=== PATIENT | male | born 1990 | race American Indian/Alaskan Native ===

== ENCOUNTER 2017-01-10 17:10 | Emergency (ER) | payer SELFPAY ==
[2017-01-10 17:27] VITALS: O2SAT 24
[2017-01-10] MEDS ORDERED: DiphenhydrAMINE 50 mg/ml Inj IVP STA (18:15)
[2017-01-10] MEDS ORDERED: Sodium Chloride 0.9% 1,000 ML IV ONE (18:15)
--- NOTE | 2017-01-10 18:27 | C.PDOC ---
History Of Present Illness Patient is a 26 y/o male who presents to the ED with complaints of a subjective 100.2 fever, cough, and congestion since last night. Patient admits to associated weakness as well. Patient notes vomiting x1 since onset of symptoms but denies diarrhea or abdominal pain. There are no other complaints at this time. Time Seen by Provider: 01/10/17 18:11 Chief Complaint (Nursing): Fever History Per: Patient History/Exam Limitations: no limitations Onset/Duration Of Symptoms: Days (onset of symptoms last night. ) Current Symptoms Are (Timing): Still Present Associated Symptoms: Fever, Sore Throat, Cough, Vomiting. denies: Diarrhea Recent travel outside of the [place]: No Past Medical History Reviewed: Historical Data, Nursing Documentation, Vital Signs Vital Signs: Last Vital Signs Temp 100.9 F H 01/10/17 19:46 Pulse 89 01/10/17 19:46 Resp 18 01/10/17 19:46 BP 116/66 01/10/17 19:46 Pulse Ox 24 L 01/10/17 20:50 - Medical History PMH: Fractures Surgical History: No Surg Hx - [facility] Procedures APPLICATION OF SPLINT (04/20/14) Family History: States: Unknown Family Hx - Social History Hx Tobacco Use: Yes Hx Alcohol Use: No Hx Substance Use: No - Immunization History Hx Tetanus Toxoid Vaccination: Yes Hx Influenza Vaccination: Yes Hx Pneumococcal Vaccination: Yes Review Of Systems Except As Marked, All Systems Reviewed And Found Negative. Constitutional: Positive for: Fever, Weakness Respiratory: Positive for: Cough Gastrointestinal: Positive for: Vomiting Neurological: Positive for: Weakness Physical Exam - Physical Exam Appears: Well, Non-toxic, No Acute Distress Skin: Normal Color, Warm, Dry Head: Atraumatic, Normacephalic Oral Mucosa: Moist Throat: Erythema, Exudate Chest: Symmetrical Cardiovascular: Rhythm Regular, No Murmur Respiratory: Normal Breath Sounds, No Rales, No Rhonchi, No Wheezing Gastrointestinal/Abdominal: Soft, No Tenderness Neurological/Psych: Oriented x3, Normal Speech, Normal Cognition, Other (no focal defecits. ) ED Course And Treatment - Laboratory Results Result Diagrams: 01/10/17 18:26 01/10/17 18:26 O2 Sat by Pulse Oximetry: 24 (room air) Pulse Ox Interpretation: Abnormal Against Medical Advice - AMA Patient Left Against Medical Advice: The patient declines admission to the hospital and wishes to leave the Emergency Department. This action is against my medical advice. This decision was made with informed refusal. The patient was told that admission to the hospital is necessary. Explanation of the reasons why were discussed. The risks of leaving were explained to the patient and include, but are not limited to, worsening of known or currently unknown conditions, permanent disability and from undiagnosed or untreated conditions. The patient has the capacity to make this informed decision and understands my explanation of the current medical problem and risks of leaving. The patient voluntarily accepts these risks and signed an AMA form documenting our conversation. The patient was given the opportunity to ask questions and reconsider. The patient was encouraged to return to the Emergency Department at any time for further care. Medical Decision Making Medical Decision Making: ro strep, pneumonia, sepsis, labs imaging pending Plan: Blood work, CXR, Rapid Strep, Influenza A B, and UA ordered; Tylenol, Benadryl, Reglan, and IV fluids administered. 800: strep positive. antibitoics dosed. pt with persisatn hernandes, photophobia. suggested lp to r/o mengitis and head ct. pt refuses. signs ama. Disposition - Disposition Referrals: [facility] [Outside] [facility] [Outside] [facility] [Outside] Disposition: AGAINST MEDICAL ADVICE Disposition Time: 07:00 Condition: UNKNOWN Additional Instructions: you are leaving without all diagnostic testing. you are able to return to er with any worsening symptoms or concerns. Prescriptions: Cefpodoxime [Vantin] 100 mg PO BID #14 tab Instructions: Strep Throat (ED), Against Medical Advice (ED) Forms: [email or web address] (Yoruba), Work Excuse - Clinical Impression Clinical Impression: Strep pharyngitis, Left against medical advice - Scribe Statement The provider has reviewed the documentation as recorded by the Scribe Shaylee Pink All medical record entries made by the Scribe were at my direction and personally dictated by me. I have reviewed the chart and agree that the record accurately reflects my personal performance of the history, physical exam, medical decision making, and the department course for this patient. I have also personally directed, reviewed, and agree with the discharge instructions and disposition.
[2017-01-10 18:29] LABS: VENOUS BLOOD GAS BASE EXCESS 2.7 mmol/L (0.0-2.0); VENOUS BLOOD GAS PCO2 50 mmHg (40-60); VENOUS BLOOD PH 7.37 (7.32-7.43)
[2017-01-10 18:31] LABS: BASO % 0.3 % (0.0-2.0); EOS # 0.1 K/uL (0.0-0.7); EOS % 0.7 % (0.0-4.0); HEMATOCRIT 40.9 % (35.0-51.0); LYMPH # 0.9 K/uL (1.0-4.3); LYMPH % 7.2 % (20.0-40.0); MEAN CELL VOLUME 86.8 fL (80.0-94.0); MEAN CORPUSCULAR HEMOGLOBIN 28.8 pg (27.0-31.0); MEAN CORPUSCULAR HGB CONC 33.1 g/dL (33.0-37.0); MEAN PLATELET VOLUME 8.7 fL (7.2-11.7); MONO # 0.8 K/uL (0.0-0.8); MONO % 6.8 % (0.0-10.0); PLATELET COUNT 153 K/uL (130-400); RED CELL DISTRIBUTION WIDTH 13.1 % (11.5-14.5); WHITE BLOOD COUNT 12.3 K/uL (4.8-10.8)
[2017-01-10 18:40] LABS: ALB/GLOB RATIO 1.3 (1.0-2.1); ALKALINE PHOSPHATASE 56 U/L (38-126); ALT/SGPT 36 U/L (21-72); AST/SGOT 37 U/L (17-59); BILIRUBIN,TOTAL 0.6 mg/dL (0.2-1.3); BLOOD UREA NITROGEN 16 mg/dL (9-20); CALCIUM 9.4 mg/dl (8.6-10.4); CARBON DIOXIDE 26 mmol/L (22-30); CHLORIDE 96 mmol/L (98-107); GFR AFRICAN-AMERICAN > 60; GLUCOSE,RANDOM 88 mg/dL (75-110); POTASSIUM 3.9 mmol/L (3.6-5.2); SODIUM 135 mmol/L (132-148); TOTAL PROTEIN 7.7 g/dL (6.3-8.3)
[2017-01-10 18:47] LABS: INR 1.2
[2017-01-10] MEDS ORDERED: DiphenhydrAMINE 50 mg/ml Inj ONE (18:57)
[2017-01-10] MEDS ORDERED: Sodium Chloride 0.9% 1,000 ML ONE (18:57)
[2017-01-10] MEDS ORDERED: cefTRIAXone IV 1 gm in Dextros 50 ML IVPB ONE ×2 (19:09→19:34)
[2017-01-10 19:12] LABS: NEUTROPHIL 83 % (50-75); TOTAL CELLS COUNTED 100
[2017-01-10 19:57] VITALS: BP 116/66; PULSE 89; RESP 18; TEMP 100.9
--- NOTE | 2017-01-11 09:54 | RAD ---
Chest x-ray single frontal view History: Cough. Comparison: 01/10/2017 Findings: No focal infiltrate or effusion. Mild right hilar prominence. Heart size within normal limits. Surgical screws seen within the left superior glenoid with degenerative changes at the left glenohumeral joint space. Impression: No focal infiltrate or effusion.
== END 2017-01-10 20:34 | disposition left against medical advice (07) ==
LOC: C.ER 17:10
DX: J02.0 Streptococcal pharyngitis (principal)
CPT/HCPCS: 71010; 80053; 82803; 85025; 85610; 85730; 87430; 87804; 99285; J0696